=== PATIENT | male | born 1980 | race African-American/Black ===

== ENCOUNTER 2020-02-11 13:57 | Inpatient (IN) | payer OTHER ==
[~2020-02-11] VITALS: Ht 170.2 cm; Wt 70.5 kg
--- NOTE | 2020-02-11 15:12 | NUR ---
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 SHERYL
[2020-02-11 15:17] LABS: BASOPHILS # (AUTO) 0.02 x10^3/uL (0-0.1); BASOPHILS % (AUTO) 0 % (0-1); EOSINOPHILS # (AUTO) 0.05 x10^3/uL (0-0.4); EOSINOPHILS % (AUTO) 1 % (1-7); LYMPHOCYTES # (AUTO) 0.79 x10^3/uL (1-3.4); LYMPHOCYTES % (AUTO) 12 % (22-44); MD NO; MEAN CORPUSCULAR HEMOGLOBIN 31.1 pg (27.5-34.5); MEAN CORPUSCULAR HGB CONC 32.9 g/dL (33.2-36.2); MEAN CORPUSCULAR VOLUME 94.4 fL (81-97); MEAN PLATELET VOLUME 7.5 fL (7.4-10.4); MONOCYTES # (AUTO) 0.68 x10^3/uL (0.2-0.8); MONOCYTES % (AUTO) 11 % (2-9); NEUTROPHILS # (AUTO) 4.79 x10^3/uL (1.8-6.8); NEUTROPHILS % (AUTO) 76 % (42-75); PLATELET COUNT 252 x10^3/uL (130-400); RED BLOOD COUNT 4.46 x10^6/uL (4.38-5.82); RED CELL DISTRIBUTION WIDTH 12.2 % (9.4-14.8)
--- NOTE | 2020-02-11 15:17 | NUR ---
PATIENT REPORTS FEELING WEAK AND SHORTNESS OF BREATH SINCE TUESDAY. HE STATES HE HAS PAINS IN SIDE ON LEFT WHEN HE BREATHES DEEP
[2020-02-11 15:50] LABS: ALANINE AMINOTRANSFERASE 13 U/L (12-78); ALBUMIN 3.5 g/dL (3.4-5.0); ANION GAP 5 mmol/L (5-15); CHLORIDE 108 mmol/L (98-107); CREATININE 1.02 mg/dL (0.7-1.3)
[2020-02-11 15:53] LABS: ALKALINE PHOSPHATASE 52 U/L (45-117); BILIRUBIN,TOTAL 0.9 mg/dL (0.2-1.0); TOTAL PROTEIN 7.7 g/dL (6.4-8.2)
[2020-02-11] MEDS ORDERED: METHOCARBAMOL 750 MG TABLET PO ONE (16:00)
[2020-02-11] MEDS ORDERED: KETOROLAC 30 MG/1 ML IM ONE (16:00)
[2020-02-11] MEDS ORDERED: KETOROLAC 30 MG/1 ML ONE (16:05)
[2020-02-11] MEDS ORDERED: METHOCARBAMOL 750 MG TABLET ONE (16:05)
[2020-02-11 16:56] LABS: MICROSCOPIC INDICATED
[2020-02-11] MEDS ORDERED: OMNIPAQUE 350 MG/ML, 75ML BOTTLE ONE (18:50)
[2020-02-11] MEDS ORDERED: HEPARIN 25,000 UNITS/250ML PMX 250 ML IV PRN (20:00)
[2020-02-11] MEDS ORDERED: HEPARIN 5,000 UNITS/ML, 1ML IV ONE (20:00)
[2020-02-11] MEDS ORDERED: HEPARIN 5,000 UNITS/ML, 1ML ONE (20:26)
[2020-02-11] MEDS ORDERED: HEPARIN 25,000 UNITS/250ML PMX 250 ML ONE (20:26)
--- NOTE | 2020-02-11 20:44 | NUR ---
Attempted report to floor [phone] at [phone]
[2020-02-11] MEDS ORDERED: POTASSIUM CHLORIDE 20 MEQ TAB.ER.PRT PO ONE (21:00)
[2020-02-11] MEDS ORDERED: ONDANSETRON 2MG/ML, 2ML IVPush PRN (21:00)
[2020-02-11] MEDS ORDERED: ACETAMINOPHEN 325 MG TABLET PO PRN (21:00)
[2020-02-11] MEDS: FAMOTIDINE 20 MG TABLET PO SCH (21:00)
--- NOTE | 2020-02-11 21:39 | NUR ---
Report given to Vilma ALVARADO
[2020-02-11] MEDS ORDERED: FAMOTIDINE 20 MG TABLET ONE (22:09)
[2020-02-11 22:57] VITALS: BP 120/75
[2020-02-12 02:00] VITALS: BP 110/70
[2020-02-12] MEDS: morphine SULFATE 10 MG/ML, 1ML IVPush PRN ×2 (03:35→06:30)
[2020-02-12 03:44] LABS: BASOPHILS # (AUTO) 0.02 x10^3/uL (0-0.1); BASOPHILS % (AUTO) 1 % (0-1); EOSINOPHILS % (AUTO) 4 % (1-7); LYMPHOCYTES # (AUTO) 1.09 x10^3/uL (1-3.4); LYMPHOCYTES % (AUTO) 23 % (22-44); MD NO; MEAN CORPUSCULAR HEMOGLOBIN 30.9 pg (27.5-34.5); MEAN CORPUSCULAR HGB CONC 32.3 g/dL (33.2-36.2); MEAN CORPUSCULAR VOLUME 95.8 fL (81-97); MEAN PLATELET VOLUME 7.4 fL (7.4-10.4); MONOCYTES # (AUTO) 0.64 x10^3/uL (0.2-0.8); MONOCYTES % (AUTO) 13 % (2-9); NEUTROPHILS # (AUTO) 2.87 x10^3/uL (1.8-6.8); NEUTROPHILS % (AUTO) 60 % (42-75); PLATELET COUNT 258 x10^3/uL (130-400); RED BLOOD COUNT 4.45 x10^6/uL (4.38-5.82); RED CELL DISTRIBUTION WIDTH 12.4 % (9.4-14.8)
[2020-02-12 03:55] LABS: ANION GAP 3 mmol/L (5-15); CHLORIDE 108 mmol/L (98-107); CREATININE 1.22 mg/dL (0.7-1.3)
[2020-02-12] MEDS: HEPARIN 5,000 UNITS/ML, 1ML IV PRN ×2 (04:27→12:25)
[2020-02-12] MEDS ORDERED: HEPARIN 25,000 UNITS/250ML PMX 250 ML IV PRN (04:30)
[2020-02-12 08:42] VITALS: BP 117/79
[2020-02-12] MEDS: FAMOTIDINE 20 MG TABLET PO SCH ×2 (08:51→20:20)
[2020-02-12] MEDS ORDERED: RIVA20TA PO (08:57)
[2020-02-12] MEDS ORDERED: RIVA1TAB PO (08:57)
[2020-02-12] MEDS: OXYcodone IR 5MG TABLET PO PRN ×3 (09:15→17:48)
[2020-02-12 12:32] VITALS: BP 117/81
[2020-02-12] MEDS ORDERED: METHOCARBAMOL 500 MG TABLET ONE (12:33)
[2020-02-12] MEDS: METHOCARBAMOL 500 MG TABLET PO PRN ×2 (12:34→16:25)
[2020-02-12 12:44] VITALS: BP 114/69
[2020-02-12] MEDS: RIVAROXABAN 15 MG TABLET PO SCH (16:58)
[2020-02-12 19:51] VITALS: BP 151/83
[2020-02-13 00:06] VITALS: BP 142/80
[2020-02-13] MEDS: METHOCARBAMOL 500 MG TABLET PO PRN ×2 (00:12→08:35)
[2020-02-13 08:14] VITALS: BP 120/77
[2020-02-13] MEDS: OXYcodone IR 5MG TABLET PO PRN (08:35)
[2020-02-13] MEDS: FAMOTIDINE 20 MG TABLET PO SCH (08:35)
[2020-02-13] MEDS: RIVAROXABAN 15 MG TABLET PO SCH (08:35)
[2020-02-13 14:50] VITALS: BP 130/82
[2020-03-04] MEDS ORDERED: RIVAROXABAN 20 MG TABLET PO SCH (17:00)
== END 2020-02-13 15:45 | disposition home or self-care (01) | DRG 175 ==
LOC: ED 19:43 → EDIP 19:49 → ED 19:53 → 4WST 22:05
PROVIDERS: ADMIT Student in an Organized Health Care Education/Training Program; ATTEND Internal Medicine
DX: I26.99 Other pulmonary embolism without acute cor pulmonale (principal); J96.01 Acute respiratory failure with hypoxia; E87.6 Hypokalemia
CPT/HCPCS: 36415; 71045; 71275; 80048; 80053; 81001; 81240; 81241; 83735; 85025; 85300; 85301; 85302; 85303; 85305; 85306; 85379; 85384; 85520; 87086; 93005; G0378; J1644; J1885; Q9967; J2270